=== PATIENT | male | born 1985 | race Caucasian/White ===

== ENCOUNTER 2020-10-04 17:48 | Emergency (ER) | payer OTHER ==
[~2020-10-04] VITALS: Ht 180.3 cm; Wt 99.8 kg
[~2020-10-04 17:48] MED LIST: ATOR20 PO; OMEPRAZOLE MAGN20 MG PO
[2020-10-04 18:46] LABS: BASOPHILS ABSOLUTE AUTO 0.04 K/mm3 (0.00-0.23); BASOPHILS PERCENT AUTO 0 % (0-2); EOSINOPHILS ABSOLUTE AUTO 0.35 K/mm3 (0.00-0.68); EOSINOPHILS PERCENT AUTO 3 % (0-6); Hematocrit 45.8 % (37.0-53.0); Hemoglobin 15.1 g/dL (13.5-17.5); IMMATURE GRAN ABSOLUTE AUTO 0.03 K/mm3 (0.00-0.10); IMMATURE GRAN PERCENT AUTO 0 % (0-1); LYMPHOCYTES ABSOLUTE AUTO 3.74 K/mm3 (0.84-5.20); LYMPHOCYTES PERCENT AUTO 32 % (21-46); MONOCYTES ABSOLUTE AUTO 1.11 K/mm3 (0.16-1.47); MONOCYTES PERCENT AUTO 9 % (4-13); Mean Corpuscular HGB 28.5 pg (26.0-34.0); Mean Corpuscular Volume 87 fL (80-100); Mean Platelet Volume 8.9 fL (9.1-12.4); NEUTROPHILS ABSOLUTE AUTO 6.58 K/mm3 (1.96-9.15); NEUTROPHILS PERCENT AUTO 55 % (41-73); Platelet Count 289 K/mm3 (150-400); RDW Coefficient Variation 12.6 % (11.7-14.2); RDW Standard Deviation 39.6 fL (35.1-46.3); Red Blood Cell Count 5.29 M/mm3 (4.30-5.90); White Blood Cell Count 11.85 K/mm3 (4.00-11.30)
[2020-10-04 19:47] LABS: Alanine Aminotransfer (ALT/SGP 71 U/L (12-78); Alk Phos 79 U/L (50-136); Anion Gap 7 mmol/L (6-16); Aspartate Aminotrans (AST/SGOT 39 U/L (12-37); Bilirubin, Total 0.4 mg/dL (0.1-1.0); Blood Urea Nitrogen 18 mg/dL (8-24); Bun/Creatinine Ratio 19.4 (12.0-20.0); CO2, Blood 26 mmol/L (21-32); Calcium, Blood 9.8 mg/dL (8.5-10.1); Chloride, Blood 106 mmol/L (98-108); Creatinine, Blood 0.93 mg/dL (0.60-1.20); Globulin, Blood 3.9 g/dL (2.2-4.0); Glomerular Filtration Rate >60 (60-); Glucose, Blood 86 mg/dL (70-99); Sodium, Blood 139 mmol/L (136-145); Total Protein, Blood 7.9 g/dL (6.4-8.2)
[2020-10-04 21:06] LABS: Source, Urine Clean Catch
[2020-10-04 21:10] LABS: Appearance, Urine Clear (Clear); Bilirubin, Urine Neg (Neg); Blood, Urine Neg (Neg); Color, Urine Yellow (P-Yellow); Glucose Qualitative, Urine Neg (Neg); Ketones, Urine Neg (Neg); Leukocyte Esterase, Urine Neg (Neg); Nitrite, Urine Neg (Neg); Protein, Urine Neg (Neg); Urobilinogen, Urine NORM (Normal)
[2020-10-04] MEDS ORDERED: AMPDEX10CR PO (21:59)
[2020-10-04] MEDS ORDERED: MOTRIN IB200 MG PO (23:01)
[2020-10-04] MEDS ORDERED: ONDA4ODT MM (23:01)
== END 2020-10-04 23:29 | disposition home or self-care (01) ==
LOC: ER 17:48
PROVIDERS: Physician Assistant
DX: K76.0 Fatty (change of) liver, not elsewhere classified (principal); E78.00 Pure hypercholesterolemia, unspecified; Z79.899 Other long term (current) drug therapy; Z87.891 Personal history of nicotine dependence
CPT/HCPCS: 36415; 74176; 76705; 80053; 81003; 83690; 85025; 96361; 96374; 99284-25; J2405; J7030

== ENCOUNTER 2020-12-16 12:17 | Day surgery (SDC) | payer OTHER ==
[~2020-12-16] VITALS: Ht 175.3 cm; Wt 122.8 kg
[~2020-12-16 12:17] MED LIST changes: +AMPDEX10CR PO; +ATOMOXETINE HCL80 M1 PO; +Adipex-P37.5 MG PO; +GABA100 PO; +MOTRIN IB200 MG PO; +OMEP20ER PO; +ONDA4ODT MM
[2021-01-26] MEDS ORDERED: ADDERALL 10 MG10 MG PO (08:24)
[2021-01-26] MEDS ORDERED: GABA100 PO (08:24)
[2021-01-26] MEDS ORDERED: ATOMOXETINE HCL80 M1 PO (08:25)
[2021-01-26] MEDS ORDERED: ACYC400 (08:25)
[2021-01-26] MEDS ORDERED: OMEP20ER PO (08:26)
[2021-01-26] MEDS ORDERED: Adipex-P37.5 MG PO (08:26)
== END 2020-12-16 14:05 | disposition home or self-care (01) ==
LOC: ORSCSDS 12:17
PROVIDERS: Internal Medicine Gastroenterology
PROC: 0DB68ZX Excision of Stomach, Via Natural or Artificial Opening Endoscopic, Diagnostic (ICD-10-PCS; principal; 2020-12-16 13:30)
PROC: 0DBE8ZX Excision of Large Intestine, Via Natural or Artificial Opening Endoscopic, Diagnostic (ICD-10-PCS; principal; 2020-12-16 13:30)
PROC: 0DB98ZX Excision of Duodenum, Via Natural or Artificial Opening Endoscopic, Diagnostic (ICD-10-PCS; principal; 2020-12-16 13:30)
DX: R10.13 Epigastric pain (principal); R19.4 Change in bowel habit; K62.5 Hemorrhage of anus and rectum; K64.8 Other hemorrhoids; K21.9 Gastro-esophageal reflux disease without esophagitis; K20.90 Esophagitis, unspecified without bleeding; K44.9 Diaphragmatic hernia without obstruction or gangrene; E66.01 Morbid (severe) obesity due to excess calories; Z68.41 Body mass index [BMI] 40.0-44.9, adult; Z87.891 Personal history of nicotine dependence; Z79.899 Other long term (current) drug therapy
CPT/HCPCS: 88305; 88342; J2704; J7120

== ENCOUNTER 2021-01-18 09:55 | Day surgery (SDC) | payer OTHER ==
[~2021-01-18] VITALS: Ht 175.3 cm; Wt 123.1 kg
--- NOTE | 2021-01-18 11:52 | NUR ---
01/18/21 1152 Selene Bliss PT IN A HURRY TO LEAVE, GOT DRESSED BEFORE DISCHARGE INSTRUCTIONS WERE GIVEN. UP AND WALKING AROUND. HE IS STABLE AND IS DISCHARGED.
[2021-01-26] MEDS ORDERED: ADDERALL 10 MG10 MG PO (08:24)
[2021-01-26] MEDS ORDERED: GABA100 PO (08:24)
[2021-01-26] MEDS ORDERED: ATOMOXETINE HCL80 M1 PO (08:25)
[2021-01-26] MEDS ORDERED: ACYC400 (08:25)
[2021-01-26] MEDS ORDERED: Adipex-P37.5 MG PO (08:26)
[2021-01-26] MEDS ORDERED: OMEP20ER PO (08:26)
== END 2021-01-18 11:48 | disposition home or self-care (01) ==
LOC: ORSCSDS 09:55
PROVIDERS: Orthopaedic Surgery
PROC: 01N54ZZ Release Median Nerve, Percutaneous Endoscopic Approach (ICD-10-PCS; principal; 2021-01-18 11:15)
DX: G56.02 Carpal tunnel syndrome, left upper limb (principal); E66.01 Morbid (severe) obesity due to excess calories; Z68.41 Body mass index [BMI] 40.0-44.9, adult; F17.210 Nicotine dependence, cigarettes, uncomplicated; Z79.899 Other long term (current) drug therapy
CPT/HCPCS: J2250; J3010; J7120

== ENCOUNTER 2021-09-09 09:01 | Emergency (ER) | payer OTHER ==
[~2021-09-09] VITALS: Ht 177.8 cm; Wt 127.0 kg
[~2021-09-09 09:01] MED LIST changes: +ACYC400; +ADDERALL 10 MG10 MG PO
[2021-09-09] MEDS ORDERED: COLCRYS0.6 M1 PO (09:44)
[2021-09-09 10:04] LABS: BASOPHILS ABSOLUTE AUTO 0.07 K/mm3 (0.00-0.23); BASOPHILS PERCENT AUTO 1 % (0-2); EOSINOPHILS ABSOLUTE AUTO 0.37 K/mm3 (0.00-0.68); EOSINOPHILS PERCENT AUTO 3 % (0-6); Hematocrit 43.4 % (37.0-53.0); Hemoglobin 14.8 g/dL (13.5-17.5); IMMATURE GRAN ABSOLUTE AUTO 0.09 K/mm3 (0.00-0.10); IMMATURE GRAN PERCENT AUTO 1 % (0-1); LYMPHOCYTES ABSOLUTE AUTO 3.72 K/mm3 (0.84-5.20); LYMPHOCYTES PERCENT AUTO 28 % (21-46); MONOCYTES ABSOLUTE AUTO 1.07 K/mm3 (0.16-1.47); MONOCYTES PERCENT AUTO 8 % (4-13); Mean Corpuscular HGB 28.7 pg (26.0-34.0); Mean Corpuscular HGB Conc 34.1 g/dL (31.5-36.5); Mean Corpuscular Volume 84 fL (80-100); NEUTROPHILS ABSOLUTE AUTO 7.86 K/mm3 (1.96-9.15); NEUTROPHILS PERCENT AUTO 60 % (41-73); Platelet Count 307 K/mm3 (150-400); RDW Coefficient Variation 12.8 % (11.7-14.2); RDW Standard Deviation 39.6 fL (35.1-46.3); Red Blood Cell Count 5.15 M/mm3 (4.30-5.90); White Blood Cell Count 13.18 K/mm3 (4.00-11.30)
[2021-09-09 10:15] LABS: Alanine Aminotransfer (ALT/SGP 70 U/L (12-78); Albumin, Blood 3.6 g/dL (3.4-5.0); Albumin/Globulin Ratio 0.9 (0.8-1.8); Alk Phos 70 U/L (50-136); Anion Gap 7 mmol/L (6-16); Aspartate Aminotrans (AST/SGOT 31 U/L (12-37); Bilirubin, Total 0.2 mg/dL (0.1-1.0); Blood Urea Nitrogen 17 mg/dL (8-24); Bun/Creatinine Ratio 19.3 (12.0-20.0); CO2, Blood 27 mmol/L (21-32); Calcium, Blood 9.3 mg/dL (8.5-10.1); Chloride, Blood 108 mmol/L (98-108); Creatinine, Blood 0.88 mg/dL (0.60-1.20); Globulin, Blood 4.2 g/dL (2.2-4.0); Glomerular Filtration Rate >60 (60-); Glucose, Blood 94 mg/dL (70-99); Potassium, Blood 3.9 mmol/L (3.5-5.5); Sodium, Blood 142 mmol/L (136-145); Total Protein, Blood 7.8 g/dL (6.4-8.2); Troponin I <0.015 ng/mL (0.000-0.040)
[2021-09-09 10:40] LABS: Influenza A, PCR NEGATIVE (NEGATIVE); Influenza B, PCR NEGATIVE (NEGATIVE); SARS-Cov-2 (COVID-19) PCR, MMC NEGATIVE (NEGATIVE)
[2021-09-09 10:55] LABS: Resp Syncytial Virus, PCR POSITIVE (NEGATIVE)
[2021-09-09] MEDS ORDERED: ONDA4ODT MM (11:36)
[2021-09-09] MEDS ORDERED: AMOCLA875 PO (11:36)
== END 2021-09-09 11:50 | disposition home or self-care (01) ==
LOC: ER 09:01
PROVIDERS: Physician Assistant
DX: J32.9 Chronic sinusitis, unspecified (principal); B96.89 Other specified bacterial agents as the cause of diseases classified elsewhere; R10.11 Right upper quadrant pain; R11.2 Nausea with vomiting, unspecified; B97.4 Respiratory syncytial virus as the cause of diseases classified elsewhere; Z20.822 Contact with and (suspected) exposure to COVID-19; Z87.891 Personal history of nicotine dependence
CPT/HCPCS: 0241U; 36415; 71045; 76705; 80053; 84484; 85025; 93005; 93010; 99285-25

== ENCOUNTER → 2022-12-10 | Outpatient (CLI) | payer OTHER ==
[~2022-12-10] MED LIST changes: +AMOCLA875 PO; +COLCRYS0.6 M1 PO
== END | disposition home or self-care (01) ==
LOC: LAB SHORT 17:49 → LAB 17:49
DX: J02.9 Acute pharyngitis, unspecified (principal)
CPT/HCPCS: 87077; 87081; 87185

== ENCOUNTER 2022-12-24 11:39 | Emergency (ER) | payer OTHER ==
[~2022-12-24] VITALS: Ht 175.3 cm; Wt 136.1 kg
[2022-12-24] MEDS ORDERED: OMEP20ER PO (11:49)
[2022-12-24] MEDS ORDERED: METF500 PO (11:50)
[2022-12-24] MEDS ORDERED: Veetids 500500 MG PO (12:11)
== END 2022-12-24 12:25 | disposition home or self-care (01) ==
LOC: ER 11:39
DX: J02.9 Acute pharyngitis, unspecified (principal); Z79.899 Other long term (current) drug therapy; Z79.84 Long term (current) use of oral hypoglycemic drugs; Z87.891 Personal history of nicotine dependence
CPT/HCPCS: 87430; J1100

== ENCOUNTER 2024-09-18 19:04 | Emergency (ER) | payer OTHER ==
[~2024-09-18] VITALS: Ht 175.3 cm; Wt 104.3 kg
[~2024-09-18 19:04] MED LIST changes: +ATOR10 PO; +METF500 PO; +Veetids 500500 MG PO
[2024-09-18 19:11] VITALS: BP 142/89
[2024-09-18] MEDS ORDERED: AMOCLA875 PO (19:51)
[2024-09-18] MEDS ORDERED: Amoxicillin/Clavulanate K 875 MG Tab PO ONE (19:55)
[2024-09-18] MEDS ORDERED: RX Prepack 6 Tabs Oxycodone 5mg UD ONE (19:55)
== END 2024-09-18 20:04 | disposition home or self-care (01) ==
LOC: ER 19:04
DX: K04.7 Periapical abscess without sinus (principal); Z87.891 Personal history of nicotine dependence; E78.00 Pure hypercholesterolemia, unspecified; Z79.84 Long term (current) use of oral hypoglycemic drugs; Z79.899 Other long term (current) drug therapy
CPT/HCPCS: 99283; A9270